=== PATIENT | female | born 1960 | race Caucasian/White ===

== ENCOUNTER 2018-10-22 05:31 | Inpatient (IN) | payer BC, SELFPAY ==
[2018-09-27 15:16] VITALS: BP 144/79; PULSE 66; RESP 16; TEMP 36.9; O2SAT 97; BMI 32.2
--- NOTE | 2018-09-27 15:23 | SDCEKG_ITS ---
Test Reason : Blood Pressure : / mmHG Vent. Rate : 059 BPM Atrial Rate : 059 BPM P-R Int : 152 ms QRS Dur : 082 ms QT Int : 384 ms P-R-T Axes : 010 025 020 degrees QTc Int : 380 ms Sinus bradycardia Otherwise normal ECG Confirmed by AMINA FLOWER, MALLIKA ([id number]), photographic editor MICHAEL WARD ([id number]) on 10/03/2018 11:33:05 AM Referred By: Juan José Zuluaga Confirmed By:MALLIKA HUYNH MD
[2018-09-27 15:46] LABS: Hematocrit 38.2 % (37-47); Hemoglobin 12.9 g/dl (12.0-15.0); Mean Corp Hgb Conc 33.8 g/gl (32-36); Mean Corpuscular Volume 85.8 fL (81-99); Mean Platelet Vol. 9.3 fl (6.2-12.0); Platelet Count 258 K/mm3 (150-450); RBC Distribution Width CV 12.8 % (11.6-14.6); Red Blood Count 4.45 M/mm3 (4.2-5.4); White Blood Count 5.2 K/mm3 (4.4-11.0)
[2018-09-27 15:53] LABS: Scan Indicated on CBC? Y/N NO
[2018-09-27 16:05] LABS: Anion Gap 7 (5-15); BUN 24 mg/dL (7-18); BUN/Creat Ratio 23.3 RATIO (10-20); Calcium,Total 9.4 mg/dL (8.5-10.1); Chloride 106 mmol/L (98-107); Creatinine, Serum 1.03 mg/dL (0.55-1.02); EST Glomerular Filtration Rate 59 mL/min (>60); Est Glom Filt Rate - Afr Amer 71 mL/min (>60); Estimated Creatinine Clearance 49.25 ml/min; Glucose 95 mg/dL (74-106); Potassium 4.1 mmol/L (3.5-5.1); Sodium Level 138 mmol/L (136-145)
[2018-09-27 16:17] LABS: Hemoglobin A1c 6.4 % (4.2-6.3)
--- NOTE | 2018-10-17 11:03 | CASEMGMT ---
Attempted to contact patient on cell phone, no answer. Voicemail left. Debbie Ferrell LPN Clinical Support
--- NOTE | 2018-10-17 13:58 | CASEMGMT ---
Patient returned call regarding discharge needs after upcoming surgery. Patient plans to return home with assistance from . Outpatient PT is set up at [facility], or daughter will assist with transportation. Patient is getting a walker this afternoon and shower at home has a built-in seat. There is a bedroom and bathroom on the 1st level of the home, with approx 3-4 steps to enter home. Informed patient that RN-CM will likely follow up after surgery. Debbie Ferrell LPN Clinical Support
[2018-10-22] VITALS (11 sets, daily range): BP systolic 96–118; BP diastolic 53–72; PULSE 56–82; RESP 14–18; TEMP 36.3–36.9; O2SAT 93–99; BMI 32.2; BMI 32.3
[2018-10-22] MEDS: oxyCODONE HCl Cr 10 MG Tablet PO (06:08)
[2018-10-22] MEDS: Acetaminophen 500 MG Tablet 1000 MG PO ×3 (06:08→22:11)
[2018-10-22] MEDS: Celecoxib 200 MG Capsule 400 MG PO (06:09)
[2018-10-22] MEDS: Lactated Ringers 1,000 ML 999 ML IV (06:35)
[2018-10-22 06:46] LABS: Bedside Glucose 124 mg/dL (70-110)
--- NOTE | 2018-10-22 07:15 | KNEE_PTH ---
PATIENT: NIRMALA FALCON LOC: MS3 U#:[id number] AGE/SX: 58/F ROOM: [facility] [place] RE10/22/[address]: Dr. Juan José Zuluaga DO : 1960 BED: 1 DIS: 10/23/2018 SPEC #: [id number] RECD: 10/22/18 11:43 STATUS: NELSON REQ #: [id number] UVALDO: 10/22/18 07:[address]: Juan José Zuluaga DEPT: SURGICAL PATHOLOGY RECD BY: Savage Esposito ENTERED: 10/22/18 12:57 SP TYPE: TOTAL KNEE OTHR DR: Dr. Nancy Love, DO Tissues: Knee, NOS Procedures: Decalcification bone/plaque Surgery Specimen Level IV HEADER OPERATION: Total knee replacement PRE-OP DIAGNOSIS: Osteoarthritis right knee TISSUE SUBMITTED: Bone and soft tissue MICROSCOPIC DIAGNOSIS Bone and soft tissue, right knee, total knee replacement: Pieces of bone with degenerative osteoarthritic changes. Fibroadipose tissue, fibroconnective tissue and reactive synovial tissue. ADITYA:fabio 10/25/18 MICROSCOPIC DESCRIPTION Slides are reviewed. GROSS DESCRIPTION Received is one container designated bone and soft tissue right knee. The specimen consists of multiple fragments of licona-yellow bone measuring in aggregate 10 x 9 x 3 cm. Also in the specimen container are multiple fragments of yellow-white soft tissue measuring in aggregate 7 x 5 x 2.5 cm. A number of bony fragments contain articular surfaces consistent with tibial plateau and femoral condyle and displaying prominent osteophyte formation, eburnation, and bone erosion. Adapted Physical Education Specialist sections are submitted in two cassettes as follows: 1 - soft tissue, 2 - bone after decalcification. / ADITYA:fabio 10/22/18 TC:5 [facility]: [id number]
[2018-10-22] MEDS: Cefazolin 2 GM in 0.9% Normal Saline 100 ML IV (07:30)
--- NOTE | 2018-10-22 08:42 | OP.PN_ITS ---
Immediate Post-Op Note Date of Procedure: 10/22/18 Primary Surgeon/Physician: Juan José Zuluaga supervisor shellfish farming: Donell Foy Pre-Operative Diagnosis: OA right knee Post-Operative Diagnosis: same Surgery/Procedure Performed:: Right TKR Description of Surgical Findings:: see op note Estimated Blood Loss: 25cc Specimen's removed: bone Type of Anesthesia:: Spinal ASA Class: ASA2 Mod Systematic Disease - Admit VTE Documentation VTE Present on Admission: No VTE Mechan Device Prophylaxis: SCD's, Thigh High AURE Hose VTE Pharm Prophylaxis ordered?: Yes
--- NOTE | 2018-10-22 08:56 | PCM.OP.BLANK ---
Operative Report Date of Procedure: 10/22/18 Primary Surgeon/Physician: Juan José Zuluaga spud driller: Aaron Foy PA-C spud driller: Pre-Operative Diagnosis: OA Right knee Post-Operative Diagnosis: same Surgery/Procedure Performed: Right TKR Estimated Blood Loss: 25cc Specimen's Removed: bone Type of Anesthesia: spinal ASA Class: 2 Implants: [Deya Triathlon size 3 CR femur, size 3 tibia, 9 mm CS polyethylene tibial spacer, 32 mm patella (all components cemented) ] Indications: Patient has severe end-stage osteoarthritis diagnosed via x-rays in the knee. They have failed all forms of conservative measures including activity modification, injections, anti-inflammatories, use of assistive device. The patient has pain that affects on a daily basis and prevents him from doing things that they enjoyed. They have elected to undergo the above procedure. The risks of the procedure were discussed at length and their questions were answered. Procedure Description: The patient was greeted in the preoperative area. The [right ] knee was then marked with a surgical marker. Patient was then taken to or Suite 2. They were administered a dose of antibiotics as well as tranexamic acid. Once adequate anesthesia was obtained and airway was secured to placed in supine position on the operating room table. A well-padded tourniquet was placed on the affected extremity. Leg was then prepped and draped in the usual sterile fashion from the knee down. Ioban was used on the skin. Surgical timeout was then performed and confirmed with all present. Six-inch Esmarch was used to examine the limb and tourniquet was then inflated to 250 mmHg. A longitudinal incision was then planned and carried out in the anterior aspect of the knee. The dissection was then carried the length of the incision the extensor mechanism was identified. Standard medial parapatellar arthrotomy was then performed revealing severe eburnation of bone and periarticular osteophytes. There is complete loss of cartilage especially in the medial compartment with varus alignment. Anterior fat pad was removed for visualization purposes and the anterior medial aspect of the tibia was skeletonized for exposure to the knee. The knee was then flexed the patella was inverted. Opening reamer was then used in the femur approximately 1 cm anterior to the attachment of the PCL. The intramedullary valgus wand was then placed in the femur set at 5? of valgus. The distal femoral cutting jig was then applied to the femur with anticipated resection of approximately 8 mm. This was then made with a oscillating saw. The sizing guide was then placed referencing off the posterior condyles and also reference off the epicondylar axis. This was measured and the appropriate size 4-in-1 cutting jig was then applied to the distal femur. Anterior posterior cuts were made followed by the anterior and posterior chamfer cuts. These bony pieces and fragments were removed and placed on the back table. Posterior retractor was then utilized and the tibia was subluxed anteriorly. Intramedullary tibial alignment jig was then applied to the tibia referencing off the medial one third of the tibial tubercle the anterior tibial spine the middle aspect of the tibiotalar joint. Also reference off patient's samish slope. The tibial cutting jig was then pinned with anticipated resection of 2 mm off of the deficient medial tibial condyle. This cut was made with the oscillating saw. Once this was complete a laminar storeroom keeper was utilized in both medial lateral meniscus were removed and a posterior capsular osteophytes were also removed. Posterior capsule release was performed in the posterior capsule as well as the geniculate arteries are treated with the aqua Fareed. The tibia was incised and the appropriate sized tibial tray was then pinned. The femoral trial was then placed and the knee was trialed. Full flexion-extension were easily achieved. The knee seemed to balance quite nicely. Any remaining osteophytes were removed at this time. Once this was complete the patella was everted and the Luis M patella reaming device was then utilized the patella was then placed in the appropriate jig and reamer was then used to remove approximately 9 mm of the undersurface of the patella. A soft tissue remaining was in the way was removed and patella trial was then placed listed maintain excellent tracking using the no thumbs technique. The tibial tray at this point was punched to accommodate the fins of the final implant. At this point cement was mixed on the back table. The trial components were removed and the knee was copiously irrigated. Did use a cocktail of injection for postoperative pain control. The final components were then cemented in the standard fashion and excess cement was removed with cement removal tools and patellar clamp is placed in the patella. As the cement had cured in full extension tourniquet was deflated and hemostasis was perfect with Bovie cautery as well as the aqua Manus. Needle is once again trialed with different size polyethylenes to ensure the full range of motion was achieved as well as excellent balancing ligamentously was achieved. At this point the knee was copiously irrigated. Final implant was then inserted locking mechanism was engaged and confirmed to be locked. The arthrotomy was then closed with #1 Vicryl aggravate type fashion interrupted. Subcutaneous tissue was closed with 0 Vicryl and surgical finesse were placed in the skin. A occlusive silver impregnated dressing was then applied followed by well-padded sterile dressing secured with an Jonn wrap. The patient was taken to the PACU in stable condition. No complications known at this time. Postoperatively we will maintain standard total knee postoperative protocol. The use of the physician workers compensation claims assistant was integral during this procedure. They assisted with positioning placement of the tourniquet retracting closure and placement of the dressing. The procedure would have been much more difficult without their expertise and assistance
--- NOTE | 2018-10-22 09:01 | OP.PCM_ITS ---
Operative Report Date of Procedure: 10/22/18 Primary Surgeon/Physician: Juan José Zuluaga adjunct mathematics instructor: Aaron Foy PA-C adjunct mathematics instructor: Pre-Operative Diagnosis: OA Right knee Post-Operative Diagnosis: same Surgery/Procedure Performed: Right TKR Estimated Blood Loss: 25cc Specimen's Removed: bone Type of Anesthesia: spinal ASA Class: 2 Implants: [Deya Triathlon size 3 CR femur, size 3 tibia, 9 mm CS polyethylene tibial spacer, 32 mm patella (all components cemented) ] Indications: Patient has severe end-stage osteoarthritis diagnosed via x-rays in the knee. They have failed all forms of conservative measures including activity modification, injections, anti-inflammatories, use of assistive device. The patient has pain that affects on a daily basis and prevents him from doing things that they enjoyed. They have elected to undergo the above procedure. The risks of the procedure were discussed at length and their questions were answered. Procedure Description: The patient was greeted in the preoperative area. The [right ] knee was then marked with a surgical marker. Patient was then taken to or Suite 2. They were administered a dose of antibiotics as well as tranexamic acid. Once adequate anesthesia was obtained and airway was secured to placed in supine position on the operating room table. A well-padded tourniquet was placed on the affected extremity. Leg was then prepped and draped in the usual sterile fashion from the knee down. Ioban was used on the skin. Surgical timeout was then performed and confirmed with all present. Six-inch Esmarch was used to examine the limb and tourniquet was then inflated to 250 mmHg. A longitudinal incision was then planned and carried out in the anterior aspect of the knee. The dissection was then carried the length of the incision the extensor mechanism was identified. Standard medial parapatellar arthrotomy was then performed revealing severe eburnation of bone and periarticular osteophytes. There is complete loss of cartilage especially in the medial compartment with varus alignment. Anterior fat pad was removed for visualization purposes and the anterior medial aspect of the tibia was skeletonized for exposure to the knee. The knee was then flexed the patella was inverted. Opening reamer was then used in the femur approximately 1 cm anterior to the attachment of the PCL. The intramedullary valgus wand was then placed in the femur set at 5? of valgus. The distal femoral cutting jig was then applied to the femur with anticipated resection of approximately 8 mm. This was then made with a oscillating saw. The sizing guide was then placed referencing off the posterior condyles and also reference off the epicondylar axis. This was measured and the appropriate size 4-in-1 cutting jig was then applied to the di stal femur. Anterior posterior cuts were made followed by the anterior and posterior chamfer cuts. These bony pieces and fragments were removed and placed on the back table. Posterior retractor was then utilized and the tibia was subluxed anteriorly. Intramedullary tibial alignment jig was then applied to the tibia referencing off the medial one third of the tibial tubercle the anterior tibial spine the middle aspect of the tibiotalar joint. Also reference off patient's nuiqs[place] slope. The tibial cutting jig was then pinned with anticipated resection of 2 mm off of the deficient medial tibial condyle. This cut was made with the oscillating saw. Once this was complete a laminar mission analyst was utilized in both medial lateral meniscus were removed and a posterior capsular osteophytes were also removed. Posterior capsule release was performed in the posterior capsule as well as the geniculate arteries are treated with the aqua Fareed. The tibia was incised and the appropriate sized ti bial tray was then pinned. The femoral trial was then placed and the knee was trialed. Full flexion-extension were easily achieved. The knee seemed to balance quite nicely. Any remaining osteophytes were removed at this time. Once this was complete the patella was everted and the Luis M patella reaming device was then utilized the patella was then placed in the appropriate jig and reamer was then used to remove approximately 9 mm of the undersurface of the patella. A soft tissue remaining was in the way was removed and patella trial was then placed listed maintain excellent tracking using the no thumbs technique. The tibial tray at this point was punched to accommodate the fins of the final implant. At this point cement was mixed on the back table. The trial components were removed and the knee was copiously irrigated. Did use a cocktail of injection for postoperative pain control. The final components were then cemented in the standard fashion and excess cement was removed with cement removal tools and patellar clamp is placed in the patella. As the cement had cured in full extension tourniquet was deflated and hemostasis was perfect with Bovie cautery as well as the aqua Manus. Needle is once again trialed with different size polyethylenes to ensure the full range of motion was achieved as well as excellent balancing ligamentously was achieved. At this point the knee was copiously irrigated. Final implant was then inserted locking mechanism was engaged and confirmed to be locked. The arthrotomy was then closed with #1 Vicryl aggravate type fashion interrupted. Subcutaneous tissue was closed with 0 Vicryl and surgical finesse were placed in the skin. A occlusive silver impregnated dressing was then applied followed by well-padded sterile dressing secured with an Jonn wrap. The patient was taken to the PACU in stable condition. No complications known at this time. Postoperatively we will maintain standard total knee postoperative protocol. The use of the physician assistant director of nursing was integral during this procedure. They assisted with positioning placement of the tourniquet retracting closure and placement of the dressing. The procedure would have been much more difficult without their expertise and assistance
[2018-10-22 10:41] LABS: Bedside Glucose 178 mg/dL (70-110)
[2018-10-22] MEDS: Senna/Docusate Sodium 1 Tablet 2 TABLET PO ×2 (11:14→22:11)
[2018-10-22] MEDS: Folic Acid 1 MG Tablet PO (11:15)
[2018-10-22] MEDS: oxyCODONE 5 MG Tablet PO ×2 (12:09→20:34)
[2018-10-22] MEDS: LINAGLIPTIN 5 MG TABLET PO (12:09)
[2018-10-22] MEDS: Lactated Ringers 1,000 ML 125 ML IV ×2 (13:21→22:17)
[2018-10-22] MEDS: Cefazolin 1 GM/50 ML BAG IV ×2 (15:16→23:16)
[2018-10-22] MEDS: Ketorolac 15 MG/ML Vial IV ×2 (15:30→23:10)
[2018-10-22] MEDS: 0.9% NaCl Peripheral Flush Adult/Peds IV ×3 (15:30→20:34)
[2018-10-22] MEDS: Aspirin 325 MG Tablet PO (17:07)
[2018-10-22] MEDS: Ondansetron 4 MG/2 ML Vial IV (19:06)
[2018-10-22] MEDS: Atorvastatin Calcium 10 MG Tablet PO (22:11)
[2018-10-23 02:32] VITALS: BP 107/52; PULSE 69; RESP 16; TEMP 36.6; O2SAT 97
[2018-10-23] MEDS: oxyCODONE 5 MG Tablet PO ×2 (02:38→13:58)
[2018-10-23 05:50] LABS: Hematocrit 30.4 % (37-47); Hemoglobin 10.2 g/dl (12.0-15.0); Mean Corp Hgb Conc 33.6 g/gl (32-36); Mean Corpuscular Hgb 29.2 pg (27.0-32.0); Mean Corpuscular Volume 87.1 fL (81-99); Mean Platelet Vol. 9.6 fl (6.2-12.0); Platelet Count 181 K/mm3 (150-450); RBC Distribution Width CV 12.5 % (11.6-14.6); RBC Distribution Width SD 38.3 fl (35.1-43.9); Red Blood Count 3.49 M/mm3 (4.2-5.4); White Blood Count 5.1 K/mm3 (4.4-11.0)
[2018-10-23 06:02] LABS: Scan Indicated on CBC? Y/N NO
[2018-10-23 06:09] LABS: Anion Gap 9 (5-15); BUN 23 mg/dL (7-18); BUN/Creat Ratio 18.9 RATIO (10-20); Calcium,Total 8.4 mg/dL (8.5-10.1); Chloride 106 mmol/L (98-107); Creatinine, Serum 1.22 mg/dL (0.55-1.02); EST Glomerular Filtration Rate 48 mL/min (>60); Est Glom Filt Rate - Afr Amer 58 mL/min (>60); Estimated Creatinine Clearance 41.58 ml/min; Glucose 107 mg/dL (74-106); Potassium 4.2 mmol/L (3.5-5.1); Sodium Level 140 mmol/L (136-145)
[2018-10-23] MEDS: Acetaminophen 500 MG Tablet 1000 MG PO ×2 (06:15→13:58)
[2018-10-23] MEDS: 0.9% NaCl Peripheral Flush Adult/Peds IV ×2 (06:17→09:06)
[2018-10-23 07:33] VITALS: PULSE 70
[2018-10-23] MEDS: Senna/Docusate Sodium 1 Tablet 2 TABLET PO (07:40)
[2018-10-23] MEDS: LINAGLIPTIN 5 MG TABLET PO (07:40)
[2018-10-23] MEDS: Multivitamins,Therapeutic Tablet 1 TABLET PO (07:40)
[2018-10-23] MEDS: Folic Acid 1 MG Tablet PO (07:40)
[2018-10-23] MEDS: Aspirin 325 MG Tablet PO ×2 (07:40→16:22)
--- NOTE | 2018-10-23 08:01 | PCM.PN.ORT ---
Subjective: Patient sitting at bedside eating breakfast. Pain well managed. Denies chest pain, shortness of breath, calf pain, nausea vomiting. Patient states she is ready for discharge home, with no complaint. Objective: Dressing is clean dry intact. Negative signs and symptoms of DVT. Vital signs labs within normal limits. Patient is afebrile neurovascular is otherwise intact. Patient speaking full sentences with no respiratory distress. - Physical Exam General: Alert, Oriented x3, Cooperative HEENT: PERRLA Oral: Moist Mucosa Neurological: Cranial nerves II-XII grossly intact Psych/Mental Status: Normal Affect, Alert and oriented to time, place, person, mood and affect Vital Signs Temp Pulse Resp BP Pulse Ox 97.8 F 70 16 107/52 L 97 10/23/18 02:32 10/23/18 07:33 10/23/18 02:32 10/23/18 02:32 10/23/18 02:32 Oxygen Delivery Method Room Air Weight: 83.9 kg Body Mass Index (BMI) 32.3 Finger Stick Blood Glucose 178 Intake and Output for Last 24 Hours 10/21/18 10/22/18 10/23/18 23:59 23:59 23:59 Intake Total 5341 / 5341 300 / 300 Output Total 950 / 950 1300 / 1300 Balance 4391 / 4391 -1000 / -1000 Laboratory Tests Past 24 Hrs 10/23/18 10/23/18 05:30 05:30 WBC 5.1 RBC 3.49 L Hgb 10.2 L Hct 30.4 L MCV 87.1 MCH 29.2 MCHC 33.6 RDW 12.5 RDW Differential 38.3 Plt Count 181 MPV 9.6 Sodium 140 Potassium 4.2 Chloride 106 Carbon Dioxide 25.0 Anion Gap 9 BUN 23 H Creatinine 1.22 H Estim Creat Clear Calc 41.58 Est GFR (MDRD) Af Amer 58 L Est GFR (MDRD) Non-Af 48 L BUN/Creatinine Ratio 18.9 Glucose 107 H Calcium 8.4 L POC Glucose 10/22/18 10:27 POC Glucose 178 H Medical Necessity - Tobacco Use Smoking Status: Never smoker Tobacco Use: Non-smoker Assessment/Plan All Active Problems (Last Reviewed 07/10/18 @ 16:13 by Fe Orta) Contact dermatitis and eczema due to plant (Acute) Status post right total knee arthroplasty Plan 1. Continue all pain medications as prescribed 2. Physical therapy weight-bear as tolerated with walker. 3. Aspirin 3 and 25 mg 1 p.o. every 12 hours times 30 days for postop DVT prophylaxis 4. Encourage incentive spirometry 5. Follow-up Dr. Zuluaga is scheduled 6. Patient will continue outpatient physical therapy at [facility] 7. Discharge home today after p.m. therapy
--- NOTE | 2018-10-23 08:05 | DCINST_ITS ---
Discharge Diet: No Restrictions Discharge Activity: May Not Drive, May Shower, Use Walker May shower in (days): 3 Ice area for (Minutes): 20 - each hour while awake. Weight Bearing Status: Weight bearing as tolerated Elevate: Operative Extremity Additional Activity Instructions:: Wear elastic stockings for 2 weeks after your surgery. Call your doctor if your incision/area has: Continuous Slow Oozing, Sudden Increased Bleeding, Increased Pain/ Swelling, Increased Redness, Foul Smelling Discharge Call your doctor if you observe: Fever of 101 or Higher, Coldness, Increased Pain - in extremity, Numbness or Tingling, Change in Color, Calf discomfort, Uncontrolled pain Change Dressing in (Days):: 0 - and daily as needed. Remove Dressing in (days):: 8 Cleanse incision/area with: Soap & Water Allergies/Adverse Reactions: Allergies No Known Allergies Allergy (Unverified 09/27/18 15:06) Medications to take at Discharge atorvastatin 10 mg tablet 10 mg PO DAILY 90 Days #90 07/10/18 lisinopril 5 mg tablet 5 mg PO DAILY 90 Days #90 07/10/18 sitagliptin 50 mg-metformin 1,000 mg tablet 1 tab PO DAILY 90 Days #90 07/10/18 Acetaminophen [Tylenol] 500 - 1,000 mg PO Q6H PRN PRN 09/27/18 Folic Acid 1 mg PO DAILY@0800 09/27/18 Meloxicam [Mobic] 15 mg PO DAILY 09/27/18 Multivitamin [Multiple Vitamins] 1 each PO DAILY 09/27/18 Aspirin 325 mg PO BIDCM #60 tab 10/23/18 Oxycodone [Oxyir] 5 - 10 mg PO Q4H PRN PRN 7 Days #90 tab 10/23/18 The following prescriptions were given: Oxycodone [Oxyir] 5 - 10 mg PO Q4H PRN PRN 7 Days #90 tab PRN Reason: Mod-Severe Pain (4-08/22) Aspirin 325 mg PO BIDCM #60 tab Primary Care Physician: Nancy Love DO [Primary Care Provider] - Test Results: Test results from this visit will be discussed in further detail at your follow- up appointment, if applicable. Please Follow Up With: Juan José Zuluaga DO When: as scheduled (see pink sheet)
[2018-10-23 09:02] VITALS: BP 128/73; PULSE 61; RESP 18; TEMP 36.9; O2SAT 97
[2018-10-23] MEDS: Ketorolac 15 MG/ML Vial IV (09:06)
[2018-10-23] MEDS: Lisinopril 5 MG Tablet PO (09:06)
--- NOTE | 2018-10-23 11:12 | CASEMGMT ---
DIPTI HUGHES Face to Face with patient for initial transition planning/care coordination assessment. RN SAUL introduced self and role at [facility]. Patient lying in bed, alert and oriented. Patient willing to participate in assessment and is able to answer all questions appropriately. Care providers, pharmacy, and demographics verified. Patient wishes to discharge home and is setup with [facility] for outpatient therapy. Patient states she has no further needs or concerns at this time. CM to follow for discharge planning needs that may arise. PCP: Nancy Love Specialists: None [facility]erred [facility]acy: [facility] Insurance: [employer] Prescription Benefit: [employer] Living Will/HPOA: Yes Rehan Banks LNOK: Living Arrangements: Patient lives with in house with bed and bath on 1st level Transportation: or daughter DME/HHC: Patient has walker and tub bench Disposition Plan: Patient to discharge home with outpatient therapy, family support, and follow-up plans in place. Robina SANTOSN, RN, CM
[2018-10-23 13:57] VITALS: BP 107/68; PULSE 70; RESP 18; TEMP 36.9; O2SAT 96
== END 2018-10-23 17:03 | disposition home or self-care (01) | DRG 470 ==
PROVIDERS: Anesthesiology; Admitting Provider Orthopaedic Surgery; Family Provider Internal Medicine; PCP Internal Medicine; Referring Provider Orthopaedic Surgery; Visit Provider Orthopaedic Surgery
PROC: 0SRC0J9 Replacement of Right Knee Joint with Synthetic Substitute, Cemented, Open Approach (ICD-10-PCS; CPT 27447; principal; 2018-10-22 06:50)
DX: M17.11 Unilateral primary osteoarthritis, right knee (principal); E11.9 Type 2 diabetes mellitus without complications; E78.00 Pure hypercholesterolemia, unspecified; Z96.652 Presence of left artificial knee joint; Z79.84 Long term (current) use of oral hypoglycemic drugs
CPT/HCPCS: 36415; 80048; 82962; 83036; 85027; 87081; 88305; 88311; 93005; 97110; 97161; 97165; 97530; C1776; J7120; A4216; J2405

== ENCOUNTER → 2019-02-25 | Outpatient (CLI) | payer BC, SELFPAY ==
[2018-10-22 10:56] VITALS: BMI 32.3
--- NOTE | 2019-02-25 14:49 | BI_ITS ---
MAMMOGRAPHY - BILATERAL SCREENING REASON FOR EXAM: Female, 58 years old. Routine annual screening examination. PERTINENT HISTORY: Non-contributory. Bilateral breast implants. TECHNIQUE: Digital bilateral breast dania (3D mammographic acquisition) in the CC and MLO projections. 2-D mediolateral oblique (MLO) and craniocaudad (CC) views of both breasts were obtained. CAD: Full Field Digital Mammography with Computer Added Detection was performed. COMPARISON: Comparison is made with prior EXAMINATION dated April 25, 2017. FINDINGS: Breast Composition: There are scattered areas of fibroglandular density. There are no dominant masses or suspicious calcifications. Stable bilateral breast implants. No other significant abnormalities are identified. There has been no significant change since the prior study. BI/SCREEN MAMM (CAD) W/DANIA BILAT IMPRESSION: Stable bilateral screening mammogram. Yearly follow-up mammogram recommended. (A) ASSESSMENT CATEGORY: BIRADS Category 2: Benign. A letter regarding these results will be sent to the patient by the facility within 30 days. Approximately 10% of breast cancers are not detected by mammography. A normal mammogram should not delay biopsy of a clinically suspicious abnormality. [id number] Electronically Signed: Juanjo Rodriguez, at 15:47 EDT , Service support ,
== END | disposition home or self-care (01) ==
PROVIDERS: Family Provider Internal Medicine; PCP Internal Medicine; Visit Provider Nurse Practitioner Women's Health
DX: Z12.31 Encounter for screening mammogram for malignant neoplasm of breast (principal)
CPT/HCPCS: 77063; 77067

== ENCOUNTER → 2019-06-06 | Outpatient (CLI) | payer BC, SELFPAY ==
[2019-03-12 10:44] VITALS: BMI 32.3
--- NOTE | 2019-06-06 12:30 | RAD_ITS ---
STUDY: X-RAY BONE LENGTH SCANOGRAM REASON FOR EXAM: Female, 58 years old. History of total knee arthroplasties. Evaluate for leg length discrepancy. TECHNIQUE: Frontal views of the inferior portion of the pelvis and the lower extremities were obtained. COMPARISON: None. FINDINGS: Generalized osteopenia. Right total knee arthroplasty and left medial hemiarthroplasty. The distance from the acetabulae to the medial femoral condyles bilaterally is 68 cm and is symmetrical. The distance from the acetabulae to the tibiotalar joints is 100 point for 5 cm on the left and 105.5 cm on the right. RAD/Bone Length IMPRESSION: Osteopenia with minimal leg length discrepancy as outlined above. Electronically Signed: Donell Palma MD at 13:42 EDT , Service support ,
== END | disposition home or self-care (01) ==
LOC: RAD 12:28
PROVIDERS: Family Provider Internal Medicine; PCP Internal Medicine; Referring Provider Orthopaedic Surgery; Visit Provider Orthopaedic Surgery
DX: M21.70 Unequal limb length (acquired), unspecified site (principal); M17.11 Unilateral primary osteoarthritis, right knee
CPT/HCPCS: 77073

== ENCOUNTER → 2019-07-12 | Outpatient (CLI) | payer BC, SELFPAY ==
[2019-03-12 10:44] VITALS: BMI 32.3
--- NOTE | 2019-07-12 08:38 | RAD_ITS ---
STUDY: X-RAY - RIGHT KNEE REASON FOR EXAM: Female, 58 years old. Status post total knee replacement. TECHNIQUE: 4 view(s) of the knee. COMPARISON: None. FINDINGS: The patient is status post total knee replacement. There is good alignment. The soft tissue structures are unremarkable. RAD/Knee 4 or More Views IMPRESSION: Status post total knee replacement. There is good alignment. Electronically Signed: Juanjo Rodriguez, at 10:32 EDT , Service support ,
== END | disposition home or self-care (01) ==
LOC: HPRAD 08:38
PROVIDERS: Family Provider Internal Medicine; PCP Internal Medicine; Referring Provider Orthopaedic Surgery; Visit Provider Orthopaedic Surgery
DX: M25.561 Pain in right knee (principal); Z96.651 Presence of right artificial knee joint
CPT/HCPCS: 73564

== ENCOUNTER → 2020-03-19 | Outpatient (CLI) | payer BC, SELFPAY ==
[2019-07-12 08:38] VITALS: BMI 32.3
[2020-03-19 11:12] VITALS: BMI 32.3
--- NOTE | 2020-03-19 11:38 | BI_ITS ---
MAMMOGRAPHY - BILATERAL SCREENING REASON FOR EXAM: Female, 59 years old. Routine annual screening examination. PERTINENT HISTORY: Non-contributory. History of bilateral breast implants. TECHNIQUE: Digital bilateral breast dania (3D mammographic acquisition) in the CC and MLO projections. 2-D mediolateral oblique (MLO) and craniocaudad (CC) views of both breasts were obtained. CAD: Full Field Digital Mammography with Computer Added Detection was performed. COMPARISON: Comparison is made with prior examination dated February 25, 2019. FINDINGS: Breast Composition: The breasts are almost entirely fatty. There are no dominant masses or suspicious calcifications. Stable appearance of the bilateral breast implants. Stable benign-appearing bilateral axillary lymph nodes. No other significant abnormalities are identified. There has been no significant change since the prior study. BI/SCREEN MAMM (CAD) W/DANIA BILAT IMPRESSION: Stable bilateral screening mammogram. Yearly follow-up mammogram recommended. (A) ASSESSMENT CATEGORY: BIRADS Category 2: Benign. A letter regarding these results will be sent to the patient by the facility within 30 days. Approximately 10% of breast cancers are not detected by mammography. A normal mammogram should not delay biopsy of a clinically suspicious abnormality. [id number] Electronically Signed: Juanjo Rodriguez, at 12:48 EDT , Service support ,
== END | disposition home or self-care (01) ==
PROVIDERS: PCP Internal Medicine; Referring Provider Nurse Practitioner Women's Health; Visit Provider Nurse Practitioner Women's Health
DX: Z12.31 Encounter for screening mammogram for malignant neoplasm of breast (principal)
CPT/HCPCS: 77063; 77067

== ENCOUNTER → 2020-03-30 | Outpatient (CLI) | payer BC, SELFPAY ==
[2020-03-19 11:12] VITALS: BMI 32.3
--- NOTE | 2020-03-30 07:57 | US_ITS ---
STUDY: ULTRASOUND OF THE FEMALE PELVIS - LIMITED REASON FOR EXAM: Female, 59 years old pelvic pain TECHNIQUE: Transabdominal and Transvaginal TECHNICAL QUALITY: Adequate. COMPARISON: None. FINDINGS: The uterus is anteverted and is in a midline position. The uterus measures 6.2 x 4.0 x 2.2 cm. The endometrium measures 1.0 mm in thickness, and is hyperechoic. There is no demonstrated endometrial mass. There is uterine fibroid measuring 0.8 x 1.0 x 0.7 cm. The right ovary measures 1.7 x 1.5 x 2.0 cm. There is no right ovarian cyst or ovarian mass. There is no visualized right adnexal mass or complex lesion. There is normal arterial and normal venous vascularity. The left ovary measures 1.7 x 1.0 x 1.7 cm. There is no left ovarian cyst or ovarian mass. There is no visualized left adnexal mass or complex lesion. There is normal arterial and normal venous vascularity. There is no fluid in the cul-de-sac. US/Pelvic (Non ) IMPRESSION: Uterine fibroid measuring 0.8 x 1.0 x 0.7 cm. A cervical nabothian cyst is noted. Electronically Signed: Ari Shine MD at 16:53 EDT , Service support ,
--- NOTE | 2020-03-30 07:57 | US_ITS ---
STUDY: ULTRASOUND OF THE FEMALE PELVIS - LIMITED REASON FOR EXAM: Female, 59 years old pelvic pain TECHNIQUE: Transabdominal and Transvaginal TECHNICAL QUALITY: Adequate. COMPARISON: None. FINDINGS: The uterus is anteverted and is in a midline position. The uterus measures 6.2 x 4.0 x 2.2 cm. The endometrium measures 1.0 mm in thickness, and is hyperechoic. There is no demonstrated endometrial mass. There is uterine fibroid measuring 0.8 x 1.0 x 0.7 cm. The right ovary measures 1.7 x 1.5 x 2.0 cm. There is no right ovarian cyst or ovarian mass. There is no visualized right adnexal mass or complex lesion. There is normal arterial and normal venous vascularity. The left ovary measures 1.7 x 1.0 x 1.7 cm. There is no left ovarian cyst or ovarian mass. There is no visualized left adnexal mass or complex lesion. There is normal arterial and normal venous vascularity. There is no fluid in the cul-de-sac. US/Transvaginal Non- IMPRESSION: Uterine fibroid measuring 0.8 x 1.0 x 0.7 cm. A cervical nabothian cyst is noted. Electronically Signed: Ari Shine MD at 16:53 EDT , Service support ,
== END | disposition home or self-care (01) ==
LOC: OPUS 07:57
PROVIDERS: PCP Internal Medicine; Referring Provider Nurse Practitioner Women's Health; Visit Provider Nurse Practitioner Women's Health
DX: R10.2 Pelvic and perineal pain (principal)
CPT/HCPCS: 76830; 76856; 93976

== ENCOUNTER → 2020-10-14 15:22 | Outpatient (CLI) | payer BC, SELFPAY ==
[2020-03-19 11:12] VITALS: BMI 32.3
--- NOTE | 2020-10-14 15:27 | RAD_ITS ---
History: 60-year-old female with unequal limb length. Examination and technique: Radiographs for bone length. Frontal standing radiographs of the bilateral lower extremities from above the hips through below the ankles were obtained. Comparison 06/06/2019 radiographs. FINDINGS: The distance from the talar dome to the top of the femoral head is 89.8 cm on the right and 88.6 cm on the left. This is similar to prior given differences in technique. No apparent fracture or osseous destruction. Status post right total knee arthroplasty and left hemiarthroplasty of the medial compartment. Mild valgus angulation of the left knee joint. No acute soft tissue abnormality. RAD/Bone Length IMPRESSION: Leg length discrepancy as above. Electronically Signed: Ari Goodwin, at 23:45 EST Tel , Service support ,
== END ==
PROVIDERS: PCP Internal Medicine; Referring Provider Specialist; Visit Provider Specialist
DX: M21.70 Unequal limb length (acquired), unspecified site (principal); M17.11 Unilateral primary osteoarthritis, right knee
CPT/HCPCS: 77073

== ENCOUNTER 2021-01-22 13:36 | Outpatient (RCR) | payer BC, SELFPAY ==
[2020-03-19 11:12] VITALS: BMI 32.3
[2021-01-22] MEDS: COVID-19 VACC, MRNA(PFIZER)/PF 30 MCG/0.3 ML SYRINGE IM (15:23)
[2021-02-12] MEDS: COVID-19 VACC, MRNA(PFIZER)/PF 30 MCG/0.3 ML SYRINGE IM (15:10)
== END 2021-01-22 23:59 ==
LOC: IMMUN 13:36
PROVIDERS: PCP Internal Medicine; Referring Provider Family Medicine; Visit Provider Family Medicine
DX: Z23 Encounter for immunization (principal)
CPT/HCPCS: 0001A; 0002A; 91300

== ENCOUNTER → 2021-06-01 07:49 | Outpatient (CLI) | payer OTHER, SELFPAY ==
[2020-03-19 11:12] VITALS: BMI 32.3
--- NOTE | 2021-06-01 08:01 | BI_ITS ---
MAMMOGRAPHY - BILATERAL SCREENING REASON FOR EXAM: Female, 60 years old. Routine annual screening examination. PERTINENT HISTORY: Non-contributory. Bilateral breast implants. TECHNIQUE: Digital bilateral breast dania (3D mammographic acquisition) in the CC and MLO projections. 2-D mediolateral oblique (MLO) and craniocaudad (CC) views of both breasts were obtained. CAD: Full Field Digital Mammography with Computer Added Detection was performed. COMPARISON: Comparison is made with prior examination dated 03/19/2020 and 02/25/2019. FINDINGS: Breast Composition: The breasts are almost entirely fatty. There are no dominant masses or suspicious calcifications. Stable appearance of the bilateral breast implants. Stable appearance of the bilateral axial lymph nodes. No other significant abnormalities are identified. There has been no significant change since the prior study. BI/SCRN MAMM (CAD)W/DANIA BILAT IMPRESSION: Stable bilateral screening mammogram. Yearly follow-up mammogram recommended. (A) ASSESSMENT CATEGORY: BIRADS Category 2: Benign. A letter regarding these results will be sent to the patient by the facility within 30 days. Approximately 10% of breast cancers are not detected by mammography. A normal mammogram should not delay biopsy of a clinically suspicious abnormality. [id number] Electronically Signed: Juanjo Rodriguez MD at 9:00 EDT , Service support ,
[2021-06-07 15:48] LABS: HPV APTIMA, High Risk Negative (Negative)
== END ==
PROVIDERS: PCP Internal Medicine; Referring Provider Nurse Practitioner Women's Health; Visit Provider Nurse Practitioner Women's Health
DX: Z12.31 Encounter for screening mammogram for malignant neoplasm of breast (principal); Z12.4 Encounter for screening for malignant neoplasm of cervix
CPT/HCPCS: 77063; 77067; 87624; 88175; G0145

== ENCOUNTER → 2022-03-01 12:45 | Outpatient (CLI) | payer OTHER, SELFPAY ==
--- NOTE | 2022-03-01 12:54 | BD_ITS ---
STUDY: DUAL ENERGY X-RAY ABSORPTIOMETRY / DXA REASON FOR EXAM: Female, 61 years old. [id number]. Patient is postmenopausal. TECHNIQUE: Bone Mineral Density (BMD) measurements of lumbar spine and bilateral hips were obtained. COMPARISON: None. FINDINGS: Lumbar Spine (L1-L4): g/cm2 (1.047) / T-score (0.3) / Z-score (1.7) Findings are suggestive of normal bone density with a low fracture risk. Left Femur Total: g/cm2 (0.801) / T-score (-1.2) / Z-score (-0.1) Left Femoral Neck: g/cm2 (0.676) / T-score (-1.6) / Z-score (-0.2) Right Femur Total: g/cm2 (0.818) / T-score (-1.0) / Z-score (0.0) Right Femoral Neck: g/cm2 (0.665) / T-score (-1.7) / Z-score (-0.3) BD/Dexa Bone Density Study IMPRESSION: The patient is considered osteopenic as outlined below according to World Irving Organization (WHO) criteria with a moderate fracture risk. Reference Information: The T-score is the number of standard deviations above or below the standard which is normal for young adults at their peak bone mineral density. The World Health Organization (WHO) interprets the T-scores as follows: Above -1 Normal bone density Between -1 and -2.5 Osteopenia Equal to / or below -2.5 Osteoporosis As a practical clinical guideline, osteopenia may be graded as follows: Mild -1 through -1.5 Moderate -1.6 through -2.0 Severe -2.1 through -2.4 The Z-score is the number of standard deviations above or below age-matched controls. A Z-score of less than -1.5 would be considered abnormal. References: 1. NIH Osteoporosis and Related Bone Diseases www osteo.org 2. International Society for Clinical Densitometry www iscd.org 3. National Osteoporosis Foundation www nof.org Electronically Signed: Juanjo Rodriguez MD at 12:43 EDT ,
== END ==
PROVIDERS: PCP Internal Medicine
DX: Z78.0 Asymptomatic menopausal state (principal)
CPT/HCPCS: 77080

== ENCOUNTER → 2022-06-08 | Outpatient (CLI) | payer OTHER, SELFPAY ==
--- NOTE | 2022-06-08 11:58 | BI_ITS ---
MAMMOGRAPHY - BILATERAL SCREENING REASON FOR EXAM: Female, 61 years old. Routine annual screening examination. PERTINENT HISTORY: Non-contributory. Bilateral breast implants. TECHNIQUE: Digital bilateral breast dania (3D mammographic acquisition) in the CC and MLO projections. 2-D mediolateral oblique (MLO) and craniocaudad (CC) views of both breasts were obtained. CAD: Full Field Digital Mammography with Computer Added Detection was performed. COMPARISON: Comparison is made with prior study 06/01/2021 and 03/19/2020. FINDINGS: Breast Composition: There are scattered areas of fibroglandular density. There are no dominant masses or suspicious calcifications. Stable appearance of the bilateral breast implants. Stable benign appearing bilateral axillary lymph nodes. No other significant abnormalities are identified. There has been no significant change since the prior study. BI/SCRN MAMM (CAD)W/DANIA BILAT IMPRESSION: Stable bilateral screening mammogram. Yearly follow-up mammogram recommended. (A) ASSESSMENT CATEGORY: BIRADS Category 2: Benign. A letter regarding these results will be sent to the patient by the facility within 30 days. Approximately 10% of breast cancers are not detected by mammography. A normal mammogram should not delay biopsy of a clinically suspicious abnormality. [id number] Electronically Signed: Juanjo Rodriguez MD at 12:59 EDT ,
== END | disposition home or self-care (01) ==
LOC: OPBI 11:57
PROVIDERS: PCP Internal Medicine; Visit Provider Nurse Practitioner Women's Health
DX: Z12.31 Encounter for screening mammogram for malignant neoplasm of breast (principal); Z98.82 Breast implant status
CPT/HCPCS: 77063; 77067

== ENCOUNTER → 2023-06-26 | Outpatient (CLI) | payer OTHER, SELFPAY ==
--- NOTE | 2023-06-26 07:56 | BI_ITS ---
MAMMOGRAPHY - BILATERAL SCREENING REASON FOR EXAM: Female, 62 years old. Routine annual screening examination. PERTINENT HISTORY: Non-contributory. History of prior bilateral breast implants. TECHNIQUE: Digital bilateral breast dania (3D mammographic acquisition) in the CC and MLO projections. 2-D mediolateral oblique (MLO) and craniocaudad (CC) views of both breasts were obtained. CAD: Full Field Digital Mammography with Computer Added Detection was performed. COMPARISON: Comparison is made with prior study dated June 08, 2022 and June 01, 2021. FINDINGS: Breast Composition: There are scattered areas of fibroglandular density. There are no dominant masses or suspicious calcifications. Stable appearance of the bilateral breast implants. Stable small benign-appearing bilateral axillary lymph node. No other significant abnormalities are identified. There has been no significant change since the prior study. BI/SCRN MAMM (CAD)W/DANIA BILAT IMPRESSION: Stable bilateral screening mammogram. Yearly follow-up mammogram recommended. (A) ASSESSMENT CATEGORY: BIRADS Category 2: Benign. A letter regarding these results will be sent to the patient by the facility within 30 days. Approximately 10% of breast cancers are not detected by mammography. A normal mammogram should not delay biopsy of a clinically suspicious abnormality. [id number] Electronically Signed: Juanjo Rodriguez MD at 9:59 EDT ,
== END | disposition home or self-care (01) ==
LOC: OPBI 07:55
PROVIDERS: PCP Internal Medicine; Referring Provider Nurse Practitioner Women's Health; Visit Provider Nurse Practitioner Women's Health
DX: Z12.31 Encounter for screening mammogram for malignant neoplasm of breast (principal)
CPT/HCPCS: 77063; 77067

== ENCOUNTER → 2024-06-27 | Outpatient (CLI) | payer OTHER, SELFPAY ==
--- NOTE | 2024-06-27 07:18 | BI_ITS ---
MAMMOGRAPHY - BILATERAL SCREENING REASON FOR EXAM: Female, 63 years old. Routine annual screening examination. PERTINENT HISTORY: Non-contributory. History of prior bilateral breast implants. TECHNIQUE: Digital bilateral breast dania (3D mammographic acquisition) in the CC and MLO projections. 2-D mediolateral oblique (MLO) and craniocaudad (CC) views of both breasts were obtained. CAD: Full Field Digital Mammography with Computer Added Detection was performed. COMPARISON: Comparison is made with prior study dated June 26, 2023 and June 08, 2022. FINDINGS: Breast Composition: There are scattered areas of fibroglandular density. There are no dominant masses or suspicious calcifications. Stable appearance of the bilateral breast implants. Stable bilateral fat containing axillary lymph nodes. No other significant abnormalities are identified. There has been no significant change since the prior study. BI/SCRN MAMM (CAD)W/DANIA BILAT IMPRESSION: Stable bilateral screening mammogram. Yearly follow-up mammogram recommended. (A) ASSESSMENT CATEGORY: BIRADS Category 2: Benign. A letter regarding these results will be sent to the patient by the facility within 30 days. Approximately 10% of breast cancers are not detected by mammography. A normal mammogram should not delay biopsy of a clinically suspicious abnormality. [id number] Electronically Signed: Juanjo Rodriguez MD at 8:52 EDT ,
== END | disposition home or self-care (01) ==
LOC: OPBI 07:18
PROVIDERS: PCP Internal Medicine; Referring Provider Nurse Practitioner Women's Health; Visit Provider Nurse Practitioner Women's Health
DX: Z12.31 Encounter for screening mammogram for malignant neoplasm of breast (principal)
CPT/HCPCS: 77063; 77067

== ENCOUNTER → 2025-08-01 | Outpatient (CLI) | payer OTHER, SELFPAY ==
--- NOTE | 2025-08-01 13:30 | BI_ITS ---
EXAM: SCRN MAMM (CAD)W/DANIA BILAT DATE: 08/01/2025 CLINICAL HISTORY: F, Age 64 y/o , SCREENING FOR BREAST CANCER TECHNIQUE: Procedure Code: [id number] Modality: MG Procedure: SCRN MAMM (CAD)W/DANIA BILAT COMPARISON: Prior exam(s) dated 06/27/2024, 06/26/2023, 06/08/2022. FINDINGS: TISSUE DENSITY: There are scattered areas of fibroglandular density. Bilateral Breast Mammographic Findings: No significant masses, calcifications or other abnormalities are identified. There are bilateral retropectoral saline implants. BI/SCRN MAMM (CAD)W/DANIA BILAT IMPRESSION: There is no mammographic evidence of malignancy. OVERALL FINAL ASSESSMENT BI-RADS 1: NEGATIVE. RECOMMENDATION: Routine annual follow-up in 1 Year A letter with findings and recommendations will be mailed to the patient. Reading Location: [id number]
== END | disposition home or self-care (01) ==
LOC: OPBI 13:29
PROVIDERS: PCP Internal Medicine; Referring Provider Nurse Practitioner Women's Health; Visit Provider Nurse Practitioner Women's Health
DX: Z12.31 Encounter for screening mammogram for malignant neoplasm of breast (principal)
CPT/HCPCS: 77063; 77067